=== PATIENT | female | born 1995 | race American Indian/Alaskan Native ===

== ENCOUNTER 2017-12-13 11:43 | Emergency (ER) | payer OTHER ==
[2017-12-13 12:01] VITALS: BP 126/78
--- NOTE | 2017-12-13 12:31 | Emergency Department Report ---
Blank Doc - Documentation Documentation: Patient is a 22-year-old [place] female who has had several months of off and on palpitations. Patient states that she has some pressure sensation in chest and back feels as though her heart is racing. She's had some bilateral upper extremity numbness as well. Patient states she's had a headache for the past several days associated with the chest discomfort. Patient states she was seen by viner operator in July of this year and placed on metoprolol however she is no longer on this medication. She called her primary physician for refill after the first month of taking the medication and it was not called in by her primary care physician. Patient states that she is quite worried that something is going on with her heart. Patient denies any cough congestion and fevers chills nausea vomiting at this time. Her chest discomfort is not exertional. Patient states that she was told she has a leaky valve in her heart. Patient will be moved to to fast track area. Chest x-ray will be ordered as well as labs to rule out electrolyte abnormality.
[2017-12-13 14:29] LABS: Blood Urea Nitrogen 8 mg/dL (7-17); Calcium 8.7 mg/dL (8.4-10.2); Hemolysis Index 7
[2017-12-13 14:40] LABS: Basophils % (Auto) 0.4 % (0.0-1.8); Eosinophils % (Auto) 0.6 % (0.0-4.3); Hematocrit 36.8 % (30.3-42.9); Hemoglobin 12.2 gm/dl (10.1-14.3); Lymphocytes # (Auto) 2.6 K/mm3 (1.2-5.4); Lymphocytes % (Auto) 47.5 % (13.4-35.0); Mean Corpuscular HGB Conc 33 % (30-34); Mean Corpuscular Hemoglobin 29 pg (28-32); Mean Corpuscular Volume 88 fl (79-97); Monocytes # (Auto) 0.4 K/mm3 (0.0-0.8); Monocytes % (Auto) 7.3 % (0.0-7.3); Platelet Count 250 K/mm3 (140-440); Red Blood Count 4.19 M/mm3 (3.65-5.03); Red Cell Distribution Width 14.1 % (13.2-15.2)
--- NOTE | 2017-12-13 15:01 | XRay Report ---
ROUTINE CHEST, TWO VIEWS: HISTORY: chest pain. The trachea, heart, mediastinal contour, lung ferraro and bony thorax are unremarkable. IMPRESSION: Unremarkable chest x-ray.
[2017-12-13 15:03] LABS: BUN/Creatinine Ratio 16
--- NOTE | 2017-12-13 16:11 | Emergency Department Report ---
ED Chest Pain HPI - General Chief Complaint: Chest Pain Stated Complaint: CHEST PRESSURE Time Seen by Provider: 12/13/17 12:24 Source: patient Mode of arrival: Ambulatory Limitations: No Limitations - History of Present Illness Initial Comments: Patient is a 22-year-old female who presents with several months of off and on palpitations. Patient states that she has some pressure sensation in chest and back feels as though her heart is racing. She's had some bilateral upper extremity numbness as well. Patient states she's had a headache for the past several days associated with the chest discomfort. Patient states she was seen by interior assemblies developer prover in April in [facility] of last year and placed on metoprolol however she is no longer on this medication. She called the interior assemblies developer prover's office at the beginning of this month for refills when she ran out and it was not called in. Patient states that she is quite worried that something is going on with her heart. Patient denies any cough congestion and fevers chills nausea vomiting at this time. Her chest discomfort is not exertional. Patient states that she was told she has a leaky valve in her heart. MD Complaint: chest pain -: days(s) (3 days) Onset: during exertion, after eating Pain Location: left chest (above left breast) Pain Radiation: none Severity: mild Severity scale (0 -10): 3 Quality: tightness Consistency: intermittent Improves With: nothing Worsens With: exertion re: nausea. denies: vomting, diaphoresis, dyspnea, sense of impending doom Other Symptoms: palpitations. denies: cough, fever, syncope, rash, acid taste in mouth, leg swelling, burping Treatments Prior to Arrival: none Aspirin use within the Past 7 Days: (0) No - Related Data Previous Rx's Medication Instructions Recorded Last Taken Type RX: Metoprolol Tartrate 25 mg PO DAILY #30 tablet 12/13/17 Unknown Rx Allergies Allergy/AdvReac Type Severity Reaction Status Date / Time No Known Allergies Allergy Unverified 12/13/17 12:01 Heart Score - HEART Score History: Slightly suspicious EKG: Normal Age: < 45 Risk factors: No known risk factors Troponin: < normal limit HEART Score: 0 ED Review of Systems ROS: Stated complaint: CHEST PRESSURE Other details as noted in HPI Constitutional: denies: chills, fever Cardiovascular: chest pain (chest tightness on the left above the left breast). denies: palpitations, dyspnea on exertion, edema, syncope Gastrointestinal: nausea. denies: abdominal pain, vomiting, diarrhea Neurological: headache. denies: weakness, paresthesias Psychiatric: denies: anxiety, depression ED Past Medical Hx - Past Medical History Previous Medical History?: Yes Additional medical history: heart "murmur" - Surgical History Past Surgical History?: No - Social History Smoking Status: Never Smoker Substance Use Type: None - Medications Home Medications: Home Medications Medication Instructions Recorded Confirmed Last Taken Type RX: Metoprolol Tartrate 25 mg PO DAILY #30 tablet 12/13/17 Unknown Rx ED Physical Exam - General Limitations: No Limitations General appearance: alert, in no apparent distress, obese - Respiratory Respiratory exam: Present: normal lung sounds bilaterally. Absent: respiratory distress - Cardiovascular Cardiovascular Exam: Present: regular rate, normal rhythm. Absent: systolic murmur, diastolic murmur, rubs, gallop - GI/Abdominal GI/Abdominal exam: Present: soft, normal bowel sounds - Neurological Exam Neurological exam: Present: alert, oriented X3 - Psychiatric Psychiatric exam: Present: normal affect, normal mood ED Course Vital Signs 12/13/17 11:51 Temperature 98.2 F Pulse Rate 73 Respiratory 16 Rate Blood Pressure 126/78 O2 Sat by Pulse 100 Oximetry ED Medical Decision Making - Lab Data Result diagrams: 12/13/17 13:49 12/13/17 13:49 - Radiology Data Radiology results: report reviewed ROUTINE CHEST, TWO VIEWS: HISTORY: chest pain. The trachea, heart, mediastinal contour, lung ferraro and bony thorax are unremarkable. IMPRESSION: Unremarkable chest x-ray. - Medical Decision Making 22 y.o. male that presents with chest pain on left side of chest that is non- radiating for 3 days. Denies drug use, asthma, SOB, palpations, fever, or dyspnea. Patient examined by me and in no acute distress. Vitals stable. Obtained BMP, CBC, hcg qual, and chest xray. All labs WNL and CXR normal. Patient reviewed patient portal from PCP for dose of metoprolol. Refill metoprolol 25 mg by mouth daily #30 with 0 refills. Follow-up with cardiology and PCP. Discharged home stable. Critical care attestation.: If time is entered above; I have spent that time in minutes in the direct care of this critically ill patient, excluding procedure time. ED Disposition Clinical Impression: Intermittent palpitations Chest pain Qualifiers: Chest pain type: other chest pain Qualified Code(s): R07.89 - Other chest pain Disposition: TO HOME OR SELFCARE Is pt being admited?: No Does the pt Need Aspirin: No Condition: Stable Instructions: Chest Pain (ED) Additional Instructions: Take ibuprofen, Tylenol, or naproxen as needed for pain control. Follow up with primary care provider in 24-72 hours. Follow-up with interior assemblies developer prover in 2-3 days. Return to ER if chest pain unresolved, shortness of breath, or difficulty breathing. Prescriptions: RX: Metoprolol Tartrate 25 mg PO DAILY #30 tablet Referrals: EBONI GALLARDO MD [Staff Physician] - 3-5 Days JAYANT GOVEA MD [Staff Physician] - 3-5 Days [facility] [Outside] - 3-5 Days Forms: Work/School Release Form(ED) Time of Disposition: 17:46 Print Language: CROATIAN
== END 2017-12-13 17:56 | disposition home or self-care (01) ==
LOC: ED 11:43
DX: R00.2 Palpitations (principal); R07.89 Other chest pain; R20.0 Anesthesia of skin
CPT/HCPCS: 36415; 71046; 80048; 84703; 85025; 93005; 93010